=== PATIENT | male | born 1955 | race Caucasian/White ===

== ENCOUNTER 2023-05-19 06:06 | Day surgery (SDC) | payer MEDICARE ==
[2023-05-18 12:54] LABS: BASOPHILS % (AUTO) 0.5 % (0-1); EOSINOPHILS # (AUTO) 0.2 X10'3 (0-0.9); HEMATOCRIT 41.8 % (42.0-52.0); HEMOGLOBIN 14.2 g/dl (14.0-17.9); LYMPHOCYTES # (AUTO) 1.7 X10'3 (1.1-4.8); LYMPHOCYTES % (AUTO) 33.9 % (21-51); MEAN CORPUSCULAR HEMOGLOBIN 29.9 PG (27.0-31.0); MEAN CORPUSCULAR HGB CONC 33.9 g/dL (33.0-36.5); MEAN CORPUSCULAR VOLUME 88.2 FL (78-98); MEAN PLATELET VOLUME 8.2 FL (7.4-10.4); MONOCYTES # (AUTO) 0.3 X10'3 (0-0.9); MONOCYTES % (AUTO) 6.1 % (2-12); NEUTROPHILS # (AUTO) 2.9 X10'3 (1.8-7.7); NEUTROPHILS % (AUTO) 56.5 % (42-75); PLATELET COUNT 168 X10'3 (140-440); RED BLOOD COUNT 4.74 X10'6 (4.70-6.10); RED CELL DISTRIBUTION WIDTH 13.3 % (11.5-14.5); WHITE BLOOD COUNT 5.1 X10'3 (4.5-11.0)
[2023-05-18 12:57] LABS: ALBUMIN 4.1 G/DL (3.4-5.0); ANION GAP 6 (8-16); BLOOD UREA NITROGEN 17 MG/DL (7-18); BUN/CREATININE RATIO 15.5 (10.0-20.0); CALCIUM 10.5 MG/DL (8.5-10.1); CHLORIDE 104 MMOL/L (99-107); GLUCOSE 115 MG/DL (70-104); POTASSIUM 4.3 MMOL/L (3.5-5.1); SODIUM 135 MMOL/L (135-145); TOTAL CARBON DIOXIDE 25.3 MMOL/L (24-32); eGFR 67 ML/MIN
[2023-05-18 13:01] LABS: APTT 28 SECONDS (22-32); PROTHROMBIN TIME 10.9 SECONDS (9.0-12.0)
[~2023-05-19] VITALS: Ht 185.4 cm; Wt 107.6 kg
[2023-05-19] VITALS (11 sets, daily range): BP systolic 117–137; BP diastolic 70–93; PULSE 61–69; RESP 14; TEMP 97.7; O2SAT 96–97
[2023-05-19] MEDS ORDERED: APIX5TAB3 PO (06:39)
[2023-05-19] MEDS ORDERED: CLOP75TA34 PO (06:39)
[2023-05-19] MEDS ORDERED: TOPI25TA49 PO (06:40)
[2023-05-19] MEDS ORDERED: ATOR40TA72 PO (06:41)
[2023-05-19] MEDS ORDERED: LISI10TA27 PO (06:41)
[2023-05-19] MEDS ORDERED: OMEP20TA23 PO (06:42)
[2023-05-19] MEDS ORDERED: ceFAZolin 1000mg inj ONE (07:21)
[2023-05-19] MEDS ORDERED: fentaNYL/PF 50MCG/1 ML 2ML syringe ONE (07:21)
[2023-05-19] MEDS ORDERED: midazolam 1 mg/ML 2ml injection ONE ×2 (07:21→08:25)
[2023-05-19] MEDS ORDERED: LIDOcaine 1% W/epiNEPHrine 1:100,000 20ml vial ONE (07:21)
[2023-05-19] MEDS ORDERED: clindamycin-Cleocin 900mg/D5W 50 ML IV ONE (08:00)
[2023-05-19] MEDS ORDERED: normal saline 1000ml 1,000 ML IV SCH (08:00)
[2023-05-19] MEDS ORDERED: cefazolin 2gm/D5W 100mL 100 ML IV ONE (08:00)
[2023-05-19] MEDS ORDERED: HYDROcodone/acetaminophen 10/325mg tab PO PRN (10:35)
[2023-05-19] MEDS ORDERED: HYDROcodone/acetaminophen 5mg/325mg tablet PO PRN (10:35)
[2023-05-19] MEDS ORDERED: vancomycin/NS 1 GM ADD-VANTAGE 250 ML IV ONE (11:00)
== END 2023-05-19 14:00 | disposition home or self-care (01) ==
LOC: SSTAY O 06:06
PROVIDERS: ATTEND Internal Medicine Cardiovascular Disease
DX: I49.5 Sick sinus syndrome (principal); I10 Essential (primary) hypertension; E78.5 Hyperlipidemia, unspecified; I48.0 Paroxysmal atrial fibrillation; G47.33 Obstructive sleep apnea (adult) (pediatric); I69.951 Hemiplegia and hemiparesis following unspecified cerebrovascular disease affecting right dominant side; Z79.01 Long term (current) use of anticoagulants; Z79.899 Other long term (current) drug therapy
CPT/HCPCS: 33208; 33286; 36415; 71046; 80048; 85025; 85610; 85730; 93005; 99152; 99153; C1785; C1898; J0690; J2250; J3010; J3370; J3490; J7030; A4565; A6258; A6449